=== PATIENT | female | born 1970 | race Caucasian/White ===

== ENCOUNTER 2018-09-21 13:42 | Observation (INO) ==
--- NOTE | 2018-09-21 15:24 | XR ---
EXAM DATE: 09/21/2018 3:03 PM EDT AGE/SEX: 48 years / Female INDICATIONS: Left upper chest and left shoulder pain, denies injury CLINICAL DATA: This is the patient's initial encounter. Patient reports that signs and symptoms have been present for 3 days and indicates a pain score of 5/10. MEDICAL/SURGICAL HISTORY: Hypertension. Carcinoma, breast. Mastectomy, bilateral. COMPARISON: No prior exams available for comparison. FINDINGS: A single AP view of the chest demonstrates the lungs to be symmetrically aerated without evidence of mass, infiltrate or effusion. The cardiomediastinal contours are unremarkable. Osseous structures a re intact. CONCLUSION: Negative examination. Electronically signed by: Hector Otero MD 09/21/2018 3:23 PM EDT
[2018-09-21 16:08] LABS: Baso # (Auto) 0.1 th/mm3 (0.0-0.2); Baso % (Auto) 0.7 % (0.0-2.0); Eos # (Auto) 0.1 th/mm3 (0.0-0.4); Eos % (Auto) 0.8 % (0.0-4.0); Hematocrit 38.9 % (35.0-46.0); Hemoglobin 13.4 gm/dL (11.6-15.3); Lymph # (Auto) 2.7 th/mm3 (1.0-4.8); Lymph % (Auto) 30.9 % (9.0-44.0); Mean Corpuscular HGB Conc 34.4 % (32.0-36.0); Mean Corpuscular Hemoglobin 29.9 pg (27.0-34.0); Mean Corpuscular Volume 86.9 fL (80.0-100.0); Mean Platelet Volume 7.5 fL (7.0-11.0); Mono # (Auto) 0.4 th/mm3 (0.0-0.9); Mono % (Auto) 4.3 % (0.0-8.0); Neut # (Auto) 5.5 th/mm3 (1.8-7.7); Neut % (Auto) 63.3 % (16.0-70.0); Platelet Count 261 th/mm3 (150-450); Red Blood Count 4.48 mil/mm3 (4.00-5.30); Red Cell Distribution Width 13.3 % (11.6-17.2); White Blood Count 8.7 th/mm3 (4.0-11.0)
[2018-09-21 16:23] LABS: Activated Partial Thrombo Time 26.8 sec (24.3-30.1); D-Dimer 0.43 mg/L FEU (0.00-0.50); Prothrombin Time 9.7 sec (9.8-11.6)
[2018-09-21 16:35] LABS: Alanine Aminotransferase 19 U/L (10-53); Albumin 3.2 g/dL (3.4-5.0); Anion Gap 10 meq/L (5-15); Aspartate Aminotransferase 28 U/L (15-37); Blood Urea Nitrogen 16 mg/dL (7-18); Calcium 9.1 mg/dL (8.5-10.1); Carbon Dioxide 23.5 meq/L (21.0-32.0); Chloride 99 meq/L (98-107); Glomerular Filtration Rate 60 mL/min (>89); Glucose,Random 115 mg/dL (74-106); Magnesium 2.3 mg/dL (1.5-2.5); Sodium 132 meq/L (136-145)
[2018-09-21 16:37] LABS: Potassium 4.8 meq/L (3.5-5.1)
[2018-09-21 16:54] LABS: Alkaline Phosphatase 123 U/L (45-117); Creatine Kinase 115 U/L (26-192); Total Protein 7.9 g/dL (6.4-8.2)
--- NOTE | 2018-09-21 16:56 | ED ---
HPI General Chief Complaint: Chest Pain Stated Complaint: Chest Pain,Blood Pressure,Back/Shoulder Complaint Time Seen by Provider: 09/21/18 15:02 Source: patient Mode of arrival: ambulatory Limitations: no limitations History of Present Illness HPI narrative: 48 y/o female states today she developed chest pain and shortness of breath. She denies recurrent history of this. She states she has a history of atrial fibrillation and had an ablation in [address]. [address] 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 She denies prior cardiac stents. Quality is pressure. Severity is moderate. She states she took a baby aspirin today. She denies specific modifying factors. Related Data Home Medications Medication Instructions Recorded Confirmed clonidine 1 patch TRANSDERMAL QWEEK 09/21/18 09/21/18 famotidine 40 mg PO Q8H PRN 09/21/18 09/21/18 nebivolol [Bystolic] 5 mg PO DAILY 09/21/18 09/21/18 olmesartan-hydrochlorothiazide 1 tab PO DAILY 09/21/18 09/21/18 [Benicar HCT] paroxetine HCl 20 mg PO DAILY 09/21/18 09/21/18 temazepam 15 mg PO HS PRN 09/21/18 09/21/18 Allergies Allergy/AdvReac Type Severity Reaction Status Date / Time No Known Allergies Allergy Mild Uncoded 01/13/14 11:19 Review of Systems ROS: all other systems reviewed are negative [facility] [place] Medical History Medical History Adrenal tumor (Acute) Heart attack (Acute) History of hysterectomy (Acute) Hypertension (Acute) Ovarian cancer (Acute) Surgical History Surgical History H/O prior ablation treatment (Acute) History of cholecystectomy (Acute) Social History Social History Substance History: No History of Abuse Smoking Status: Current every day smoker Tobacco Type: Cigarettes How Often Do You Have a Drink Containing Alcohol: Never Recent Travel in [facility] within the Last 8 Weeks: No Recent Out of Country Travel within the Last 8 Weeks: No Exam Narrative Exam Narrative: GENERAL: 48 y/o female in no apparent distress SKIN: Focused skin assessment warm/dry. HEAD: Atraumatic. Normocephalic. EYES: Pupils equal and round. No scleral icterus. No injection or drainage. ENT: No nasal bleeding or discharge. Mucous membranes pink and moist. NECK: Trachea midline. No JVD. CARDIOVASCULAR: Regular rate and rhythm. RESPIRATORY: No accessory muscle use. Clear to auscultation. Breath sounds equal bilaterally. GASTROINTESTINAL: Abdomen soft, non-tender, nondistended. MUSCULOSKELETAL: No obvious deformities. No clubbing. No cyanosis. No edema. NEUROLOGICAL: Awake and alert. No obvious cranial nerve deficits. Motor grossly within normal limits. Normal speech. PSYCHIATRIC: Appropriate mood and affect; insight and judgment normal. Course Reevaluation(s) Reevaluation #1: patient agrees to [facility] admit Initial Documented Vital Signs Temperature 98.6 F 09/21/18 14:08 Pulse Rate 86 09/21/18 14:08 Respiratory Rate 18 09/21/18 14:08 Blood Pressure 166/95 H 09/21/18 14:08 Pulse Oximetry 100 09/21/18 14:08 Last Documented Vital Signs Temperature 98.6 F 09/21/18 14:08 Pulse Rate 76 09/21/18 15:40 Respiratory Rate 20 09/21/18 15:40 Blood Pressure 125/61 09/21/18 15:40 Pulse Oximetry 100 09/21/18 15:40 Medical Decision Making [facility] Narrative Medical decision making narrative: Will check blood work, chest x-ray, EKG and dose with aspirin nitroglycerin and reevaluate Medical Screen Exam Complete: Yes Emergency Medical Condition: Yes Differential Diagnosis Differential Diagnosis: Musculoskeletal, gastritis, cardiac, PE Lab Data Lab results reviewed: Yes I reviewed the patient's lab results. Result diagrams: 09/21/18 15:45 09/21/18 15:45 Lab Results 09/21/18 09/21/18 09/21/18 Range/Units 15:45 15:45 15:45 WBC 8.7 (4.0-11.0) th/mm3 RBC 4.48 (4.00-5.30) mil/mm3 Hgb 13.4 (11.6-15.3) gm/dL Hct 38.9 (35.0-46.0) % MCV 86.9 (80.0-100.0) fL MCH 29.9 (27.0-34.0) pg MCHC 34.4 (32.0-36.0) % RDW 13.3 (11.6-17.2) % Plt Count 261 (150-450) th/mm3 MPV 7.5 (7.0-11.0) fL Neut % (Auto) 63.3 (16.0-70.0) % Lymph % (Auto) 30.9 (9.0-44.0) % [place] % (Auto) 4.3 (0.0-8.0) % Eos % (Auto) 0.8 (0.0-4.0) % Baso % (Auto) 0.7 (0.0-2.0) % Neut # (Auto) 5.5 (1.8-7.7) th/mm3 Lymph # (Auto) 2.7 (1.0-4.8) th/mm3 [place] # (Auto) 0.4 (0.0-0.9) th/mm3 Eos # (Auto) 0.1 (0.0-0.4) th/mm3 Baso # (Auto) 0.1 (0.0-0.2) th/mm3 WBC Differential . Differential Comment Auto diff final PT 9.7 L (9.8-11.6) sec INR 1.0 Ratio APTT 26.8 (24.3-30.1) sec D-Dimer Quant (PE/DVT) 0.43 (0.00-0.50) mg/L FEU Sodium 132 L (136-145) meq/L Potassium 4.8 (3.5-5.1) meq/L Chloride 99 (98-107) meq/L Carbon Dioxide 23.5 (21.0-32.0) meq/L Anion Gap 10 (5-15) meq/L BUN 16 (7-18) mg/dL Creatinine 0.99 (0.50-1.00) mg/dL Estimated GFR 60 L (>89) mL/min Random Glucose 115 H (74-106) mg/dL Calcium 9.1 (8.5-10.1) mg/dL Magnesium 2.3 (1.5-2.5) mg/dL Total Bilirubin 0.4 (0.2-1.0) mg/dL AST 28 (15-37) U/L ALT 19 (10-53) U/L Alkaline Phosphatase 123 H (45-117) U/L Total Creatine Kinase 115 (26-192) U/L CK-MB (CK-2) Less than 1.0 (0.5-3.6) ng/mL Troponin I Less than 0.02 L (0.02-0.05) ng/mL B-Natriuretic Peptide (0-100) pg/mL Total Protein 7.9 (6.4-8.2) g/dL Albumin 3.2 L (3.4-5.0) g/dL 09/21/18 Range/Units 15:45 WBC (4.0-11.0) th/mm3 RBC (4.00-5.30) mil/mm3 Hgb (11.6-15.3) gm/dL Hct (35.0-46.0) % MCV (80.0-100.0) fL MCH (27.0-34.0) pg MCHC (32.0-36.0) % RDW (11.6-17.2) % Plt Count (150-450) th/mm3 MPV (7.0-11.0) fL Neut % (Auto) (16.0-70.0) % Lymph % (Auto) (9.0-44.0) % [place] % (Auto) (0.0-8.0) % Eos % (Auto) (0.0-4.0) % Baso % (Auto) (0.0-2.0) % Neut # (Auto) (1.8-7.7) th/mm3 Lymph # (Auto) (1.0-4.8) th/mm3 [place] # (Auto) (0.0-0.9) th/mm3 Eos # (Auto) (0.0-0.4) th/mm3 Baso # (Auto) (0.0-0.2) th/mm3 WBC Differential Differential Comment PT (9.8-11.6) sec INR Ratio APTT (24.3-30.1) sec D-Dimer Quant (PE/DVT) (0.00-0.50) mg/L FEU Sodium (136-145) meq/L Potassium (3.5-5.1) meq/L Chloride (98-107) meq/L Carbon Dioxide (21.0-32.0) meq/L Anion Gap (5-15) meq/L BUN (7-18) mg/dL Creatinine (0.50-1.00) mg/dL Estimated GFR (>89) mL/min Random Glucose (74-106) mg/dL Calcium (8.5-10.1) mg/dL Magnesium (1.5-2.5) mg/dL Total Bilirubin (0.2-1.0) mg/dL AST (15-37) U/L ALT (10-53) U/L Alkaline Phosphatase (45-117) U/L Total Creatine Kinase (26-192) U/L CK-MB (CK-2) (0.5-3.6) ng/mL Troponin I (0.02-0.05) ng/mL B-Natriuretic Peptide 20 (0-100) pg/mL Total Protein (6.4-8.2) g/dL Albumin (3.4-5.0) g/dL Imaging Data Attestation: I personally reviewed and interpreted this imaging study as follows : Radiologist's impression: Chest X-Ray 09/21/18 15:03 CONCLUSION: Negative examination. Discharge Plan Discharge Disposition Patient Disposition: 30 Still Patient Discharge Details Diagnosis: Chest pain Physicians Team ED Provider: Elda Jordan Primary Care Provider: Nayana Eaton Attending Provider: Pillo Vera Status ED Status: Admitted Observation Patient
[2018-09-21] MEDS ORDERED: Temazepam 15 MG Capsule PO PRN (21:51)
[2018-09-21] MEDS ORDERED: Famotidine 20 MG Tablet PO PRN (21:52)
--- NOTE | 2018-09-22 09:55 | P.HPCA ---
History of Present Illness Primary Care Physician: Nayana Eaton DO Chief Complaint: Chest pain History of Present Illness: This is a 48-year-old female with history of hypertension presents to ED complaining of chest discomfort and shortness of breath. She began having a chest tightness 2 days ago while at home. He was in the center of her chest lasted all day long. Yesterday she woke up she felt nauseous and as soon later developed emesis. By the same time she had a left shoulder discomfort that radiated into the left upper chest. Currently resolved. States she follows Dr. Bender of cardiology and had a recent stress test but really is not aware of the results. States she had a cardiac catheterization 2010 that did not reveal coronary disease. History of hypertension. Denies hyperlipidemia diabetes and known CAD. Patient smokes about 1/4 pack a series daily for the past year. Prior that she smoked about 1/2 pack a series daily for 24 years. - Diagnosis (1) Chest pain (2) HTN (hypertension) (3) Tobacco abuse Review of Systems General: Patient denies fevers, chills, and recent travel. HEENT: Patient denies headache, sore throat, difficulty swallowing. Cardiovascular: Has the chest discomfort as mentioned above. Denies sensation of heart beating rapidly or irregularly. No syncope. Denies diaphoresis. Respiratory: She was short of breath. Denies inspirational chest discomfort. Denies coughing wheezing or hemoptysis. GI: She was nauseous yesterday with one episode of emesis. Patient denies diarrhea, constipation, abdominal pain, bloody stools. Musculoskeletal: Patient denies joint pain or edema. Denies calf pain or edema. Neurovascular: Patient denies numbness, tingling, weakness in extremities. Denies headache. Endocrine: Denies polyuria and polydipsia. Hematologic: Denies easy bruising. Skin: Denies rash or itching. PMFSH - History History Provided By: Patient - Medical History Medical History: Medical History (Last Reviewed 09/21/18 @ 17:00 by Elda Jordan MD) Adrenal tumor Heart attack History of hysterectomy Hypertension Ovarian cancer - Surgical History Surgical History: Surgical History (Last Reviewed 09/21/18 @ 17:00 by Elda Jordan MD) H/O prior ablation treatment History of cholecystectomy - Tobacco History Second Hand Smoke Exposure: No Tobacco Use In Past 30 Days: Yes Smoking Status: Current every day smoker Tobacco Type: Cigarettes - Alcohol History How Often Do You Have a Drink Containing Alcohol: Monthly or less - Substance Use History Substance History: No History of Abuse - Travel History Recent Travel in the [place] Within the Last 8 Weeks: No Recent Travel Out of the Country Within the Last 8 Weeks: No - Immunization History Tetanus Immunization: <5 Years Medications and Allergies Active Medications: Active Medications Famotidine (Pepcid) 40 mg PO Q8H PRN PRN Reason: ACID REFLUX Hydrochlorothiazide (Microzide) 12.5 mg PO HS [facility] Last Admin: 09/21/18 22:52 Dose: 12.5 mg Losartan Potassium (Cozaar) 25 mg PO HS [facility] Last Admin: 09/21/18 22:52 Dose: 25 mg Nebivolol (Bystolic) 5 mg PO DAILY [facility] Last Admin: 09/22/18 09:50 Dose: 5 mg Paroxetine HCl (Paxil) 20 mg PO HS [facility] Last Admin: 09/21/18 22:52 Dose: 20 mg Sodium Chloride (Ns Flush) 2 ml IV.FLUSH UNSCH PRN PRN Reason: FLUSH AFTER USING IV ACCESS Temazepam (Restoril) 15 mg PO HS PRN PRN Reason: ANXIETY Last Admin: 09/21/18 22:51 Dose: 15 mg Allergies Allergy/AdvReac Type Severity Reaction Status Date / Time No Known Allergies Allergy Verified 09/21/18 18:59 Home Medications Medication Instructions Recorded Confirmed Type clonidine 1 patch TRANSDERMAL QWEEK 09/21/18 09/21/18 History famotidine 40 mg PO Q8H PRN 09/21/18 09/21/18 History nebivolol [Bystolic] 5 mg PO DAILY 09/21/18 09/21/18 History olmesartan-hydrochlorothiazide 1 tab PO DAILY 09/21/18 09/21/18 History [Benicar HCT] paroxetine HCl 20 mg PO DAILY 09/21/18 09/21/18 History temazepam 15 mg PO HS PRN 09/21/18 09/21/18 History Exam Vital signs: Vital Signs 09/21/18 14:08 09/21/18 15:10 09/21/18 15:34 Temperature 98.6 F Pulse Rate 86 66 64 Respiratory Rate 18 Blood Pressure 166/95 H Pulse Oximetry 100 09/21/18 15:37 09/21/18 15:40 09/21/18 18:06 Temperature Pulse Rate 76 61 Respiratory Rate 20 14 Blood Pressure 125/61 110/56 L Pulse Oximetry 100 100 97 09/21/18 20:00 09/22/18 00:00 09/22/18 04:00 Temperature 98.4 F 98.4 F 98.6 F Pulse Rate 63 50 L 57 L Respiratory Rate 16 16 16 Blood Pressure 166/56 H 99/58 L 110/57 L Pulse Oximetry 96 96 99 09/22/18 08:00 09/22/18 08:31 Temperature Pulse Rate 63 50 L Respiratory Rate 16 Blood Pressure 134/76 Pulse Oximetry 96 Intake & Output 09/21/18 09/22/18 09/22/18 18:59 06:59 18:59 Weight 54.431 kg 54.431 kg Other: # Voids 3 Weight On Admission 54.431 kg Narrative: GENERAL: This is a well-nourished, well-developed patient, in no apparent distress. Patient speaks in clear complete sentences. Patient is pleasant. HEENT: Head is atraumatic and normocephalic. Neck is supple without lymphadenopathy and trachea is midline. No JVD or carotid bruits. CARDIOVASCULAR: Regular rate and rhythm without murmurs, gallops, or rubs. RESPIRATORY: Clear to auscultation. Breath sounds equal bilaterally. No wheezes , rales, or rhonchi. Chest wall is tender in the left upper back is also tender. No use of accessory muscles. GASTROINTESTINAL: Abdomen is nontender, nondistended. Abdomen soft. No obvious pulsatile mass or bruit. No CVA tenderness. Strong femoral pulses bilaterally. Normal bowel sounds in all quadrants. MUSCULOSKELETAL: Patient is moving upper and lower extremities freely. No calf tenderness or edema, no Homans sign. Strong pulses in upper and lower extremities. NEUROLOGICAL: Patient is alert and oriented. Cranial nerves 2-12 are grossly intact. No focal deficits and speech is clear. SKIN: No rash and turgor is normal. Results 09/21/18 15:45 09/21/18 15:45 Cardiac Enzymes 09/21/18 09/21/18 09/21/18 Range/Units 15:45 15:45 21:36 AST 28 (15-37) U/L CK-MB (CK-2) Less than 1.0 (0.5-3.6) ng/mL Troponin I Less than 0.02 L Less than 0.02 L (0.02-0.05) ng/mL B-Natriuretic Peptide 20 (0-100) pg/mL 09/22/18 Range/Units 01:01 AST (15-37) U/L CK-MB (CK-2) (0.5-3.6) ng/mL Troponin I Less than 0.02 L (0.02-0.05) ng/mL B-Natriuretic Peptide (0-100) pg/mL Coagulation 09/21/18 09/21/18 Range/Units 15:45 15:45 PT 9.7 L (9.8-11.6) sec APTT 26.8 (24.3-30.1) sec B-Natriuretic Peptide 20 (0-100) pg/mL CBC 09/21/18 Range/Units 15:45 WBC 8.7 (4.0-11.0) th/mm3 RBC 4.48 (4.00-5.30) mil/mm3 Hgb 13.4 (11.6-15.3) gm/dL Hct 38.9 (35.0-46.0) % Plt Count 261 (150-450) th/mm3 Neut # (Auto) 5.5 (1.8-7.7) th/mm3 Lymph # (Auto) 2.7 (1.0-4.8) th/mm3 [place] # (Auto) 0.4 (0.0-0.9) th/mm3 Eos # (Auto) 0.1 (0.0-0.4) th/mm3 Baso # (Auto) 0.1 (0.0-0.2) th/mm3 Comprehensive Metabolic Panel 09/21/18 Range/Units 15:45 Sodium 132 L (136-145) meq/L Potassium 4.8 (3.5-5.1) meq/L Chloride 99 (98-107) meq/L Carbon Dioxide 23.5 (21.0-32.0) meq/L BUN 16 (7-18) mg/dL Creatinine 0.99 (0.50-1.00) mg/dL Calcium 9.1 (8.5-10.1) mg/dL AST 28 (15-37) U/L ALT 19 (10-53) U/L Alkaline Phosphatase 123 H (45-117) U/L Total Protein 7.9 (6.4-8.2) g/dL Albumin 3.2 L (3.4-5.0) g/dL Intake and Output 09/21/18 09/22/18 09/22/18 22:59 06:59 14:59 Other: # Voids 3 Weight 54.431 kg Weight On Admission 54.431 kg - Imaging and Cardiology Imaging: Impressions Chest X-Ray 09/21/18 15:03 CONCLUSION: Negative examination. EKG interpretations - EKG EKG shows: sinus rhythm (EKGs are sinus rhythm without significant ST segment depressions or elevations.) Caprini VTE Risk Assessment Caprini VTE Risk Assessment: No/Low Risk (score <= 1) Caprini Risk Assessment Model: Point Value = 1 Point Value = 2 Point Value = 3 Point Value = 5 Age 41-60 Minor surgery BMI > 25 kg/m2 Swollen legs Varicose veins or History of unexplained or recurrent spontaneous Oral contraceptives or hormone replacement Sepsis (< 1 month) Serious lung disease, including pneumonia (< 1 month) Abnormal pulmonary function Acute myocardial infarction Congestive heart failure (< 1 month) History of inflammatory bowel disease Medical patient at bed rest Age 61-74 Arthroscopic surgery Major open surgery (> 45 min) Laparoscopic surgery (> 45 min) Malignancy Confined to bed (> 72 hours) Immobilizing plaster cast Central venous access Age >= 75 History of VTE Family history of VTE Factor V Leiden Prothrombin [id number] Lupus anticoagulant Anticardiolipin antibodies Elevated serum homocysteine Heparin-induced thrombocytopenia Other congenital or acquired thrombophilia Stroke (< 1 month) Elective arthroplasty Hip, pelvis, or leg fracture Acute spinal cord injury (< 1 month) Prophylaxis Regimen: Total Risk Factor Score Risk Level Prophylaxis Regimen 0-1 Low Early ambulation 2 Moderate Order ONE of the following: *Sequential Compression Device (SCD) *Heparin 5000 units SQ BID 3-4 Higher Order ONE of the following medications: *Heparin 5000 units SQ TID *Enoxaparin/Lovenox 40 mg SQ daily (WT < 150 kg, CrCl > 30 mL/min) *Enoxaparin/Lovenox 30 mg SQ daily (WT < 150 kg, CrCl > 10-29 mL/min) *Enoxaparin/Lovenox 30 mg SQ BID (WT < 150 kg, CrCl > 30 mL/min) AND/OR *Sequential Compression Device (SCD) 5 or more Highest Order ONE of the following medications: *Heparin 5000 units SQ TID (Preferred with Epidurals) *Enoxaparin/Lovenox 40 mg SQ daily (WT < 150 kg, CrCl > 30 mL/min) *Enoxaparin/Lovenox 30 mg SQ daily (WT < 150 kg, CrCl > 10-29 mL/min) *Enoxaparin/Lovenox 30 mg SQ BID (WT < 150 kg, CrCl > 30 mL/min) AND *Sequential Compression Device (SCD) Assessment and Plan - Assessment (1) Chest pain Code(s): R07.9 - Chest pain, unspecified Status: Acute (2) HTN (hypertension) Code(s): I10 - Essential (primary) hypertension Status: Acute (3) Tobacco abuse Code(s): Z72.0 - Tobacco use Status: Acute - Plan * Chest pain: Patient had serial cardiac enzymes and EKGs for ruling out purposes. She was seen by Dr. Bower of cardiology and chest pain center. 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 Patient had a nonischemic nuclear stress test with his office May this year. He states he was here in the office in 2 weeks, she may be discharged. She should resume her home medications and certainly return to ED for interval issues. * Hypertension: Continue medications. * Tobacco abuse: Patient has been counseled on importance of smoking cessation. Patient is stable at this time. She is agreeable to this plan. H&P: Quality - VTE Deep Vein Thrombosis/Pulmonary Embolism Present on Admission: No (1) Chest pain Qualifiers: Chest pain type: unspecified Qualified Code(s): R07.9 - Chest pain, unspecified
--- NOTE | 2018-09-22 16:37 | ECG ---
Date Performed: 09/21/2018 Time Performed: 14:17:42 PTAGE: 48 years EKG: Sinus rhythm WITH SINUS ARRHYTHMIA POSSIBLE RIGHT ATRIAL ENLARGEMENT POSSIBLE LEFT ATRIAL ENLARGEMENT BORDERLINE ECG Since PREVIOUS TRACING , no significant change noted PREVIOUS TRACIN12/09/2014 23.27 DOCTOR: Shavonne Bower Interpretating Date/Time 09/22/2018 16:36:18
--- NOTE | 2018-09-22 16:38 | ECG ---
Date Performed: 09/21/2018 Time Performed: 21:28:02 PTAGE: 48 years EKG: SINUS BRADYCARDIA POSSIBLE LEFT ATRIAL ENLARGEMENT POSSIBLE RIGHT VENTRICULAR CONDUCTION DE LAY BORDERLINE ECG Since PREVIOUS TRACING , no significant change noted PREVIOUS TRACIN09/21/2018 14.17 DOCTOR: Shavonne Bower Interpretating Date/Time 09/22/2018 16:37:08
--- NOTE | 2018-09-22 16:39 | ECG ---
Date Performed: 09/22/2018 Time Performed: 01:13:33 PTAGE: 48 years EKG: SINUS BRADYCARDIA POSSIBLE LEFT ATRIAL ENLARGEMENT BORDERLINE RIGHT AXIS DEVIATION BORDERLI NE ECG Since PREVIOUS TRACING , no significant change noted PREVIOUS TRACIN09/21/2018 21.28 DOCTOR: Shavonne Bower Interpretating Date/Time 09/22/2018 16:37:36
== END 2018-09-22 10:12 | disposition home or self-care (01) ==
LOC: NEPC 13:42 → NEDA 13:42 → NEPFCDU 18:35
PROVIDERS: ADMIT Internal Medicine Cardiovascular Disease; ATTEND Internal Medicine Cardiovascular Disease